=== PATIENT | female | born 1985 | race Caucasian/White ===

== ENCOUNTER 2017-05-22 14:01 | Inpatient (IN) ==
[2017-05-22 16:46] LABS: Basophils # 0.1 10*3/uL (0.0-0.2); Basophils % 0.3 % (0.0-0.8); Eosinophils # 0.1 10*3/uL (0.0-0.87); Eosinophils % 0.4 % (0.00-10.9); Hematocrit 36.2 VOL% (35.7-47.0); Hemoglobin 12.2 GM/DL (12.0-16.0); Immature Granulocytes % 0.8 %; Lymphocytes # 3.2 10*3/uL (1.4-4.0); Lymphocytes % 12.3 % (21.3-54.2); Mean Corpuscular HGB Conc 33.7 GM/DL (32-36); Mean Corpuscular Hemoglobin 30 PG (27-34); Mean Corpuscular Volume 88.3 FL (87-102); Mean Platelet Volume 8.8 FL (9.6-12.0); Monocytes % 7.5 % (1.7-12.7); Neutrophils # 20.7 10*3/uL (1.4-7.4); Neutrophils % 78.7 % (38.7-73.9); Platelet Count 435 T/CUMM (130-400); Red Cell Distribution Width 13.9 % (9.3-17.3); White Blood Count 26.3 T/CUMM (4-12)
[2017-05-22] MEDS ORDERED: CLINDAMYCIN INJ 600 MG in PREMIX 1 EACH IV STA (17:05)
[2017-05-22 17:10] LABS: Albumin 3.8 G/DL (3.4-5.0); Bilirubin,Total 0.4 MG/DL (0.2-1.0); Calcium 8.9 MG/DL (8.5-10.1); Potassium 3.8 MMOL/L (3.5-5.1); Total Protein 7.4 G/DL (6.4-8.3)
[2017-05-22] MEDS ORDERED: ACETAMINOPHEN 325 MG TABLET PO PRN (17:14)
[2017-05-22] MEDS ORDERED: CLINDAMYCIN INJ 50 ML IV ONE (17:26)
[2017-05-22] MEDS ORDERED: KETOROLAC 30 MG/1 ML VIAL ONE (17:28)
[2017-05-22] MEDS ORDERED: KETOROLAC 30 MG/1 ML VIAL IV STA (17:28)
[2017-05-22] MEDS ORDERED: DOCUSATE SODIUM 100 MG CAPSULE PO PRN (17:45)
[2017-05-22] MEDS ORDERED: ONDANSETRON 4 MG/2 ML VIAL IV STA (17:54)
[2017-05-22] MEDS ORDERED: DIPH/TET/ACEL PERT BOOSTER VACCINE 0.5 ML VIAL IM ONE ×2 (17:54→18:00)
[2017-05-22] MEDS ORDERED: ONDANSETRON 4 MG/2 ML VIAL ONE (17:59)
[2017-05-22 18:04] LABS: Eosinophils 1 % (0-10); Lymphocytes 12 % (20-55); Segmented Neutrophils 84 % (50-85)
[2017-05-22 18:05] LABS: Platelet Estimate Adequate; Total Cells Counted 100
[2017-05-22 18:21] LABS: Lactic Acid 0.5 MMOL/L (0.4-2.0)
[2017-05-22] MEDS: SODIUM CHLORIDE 0.9% 1,000 ML IV SCH (19:22)
[2017-05-22] MEDS ORDERED: MORPHINE 4 MG/1 ML VIAL IV ONE (19:58)
[2017-05-22] MEDS: SODIUM CHLORIDE 0.9% 2,400 ML IV ONE ×2 (20:50→23:07)
[2017-05-22] MEDS: ONDANSETRON 4 MG/2 ML VIAL IV PRN (20:51)
[2017-05-22] MEDS: ENOXAPARIN 40 MG/0.4 ML SYRINGE SUBCUT SCH (20:51)
[2017-05-22] MEDS: PIPERACILLIN/TAZOBACTAM 3,375 MG in SODIUM CHLORIDE 0.9% 100 ML IV SCH (20:52)
[2017-05-22] MEDS ORDERED: DIVALPROEX 500 MG TABLET PO SCH (21:00)
[2017-05-22] MEDS: clonazePAM 0.5 MG TABLET PO SCH (22:57)
[2017-05-22] MEDS: KETOROLAC 30 MG/1 ML VIAL IV PRN (23:03)
[2017-05-23] MEDS: ONDANSETRON 4 MG/2 ML VIAL IV PRN ×4 (01:52→23:38)
[2017-05-23] MEDS: VANCOMYCIN INJ 1,250 MG in SODIUM CHLORIDE 0.9% 250 ML IV SCH ×3 (01:52→23:38)
[2017-05-23] MEDS: PIPERACILLIN/TAZOBACTAM 3,375 MG in SODIUM CHLORIDE 0.9% 100 ML IV SCH ×3 (01:53→18:16)
[2017-05-23] MEDS: SODIUM CHLORIDE 0.9% 1,000 ML IV SCH ×3 (02:32→18:17)
[2017-05-23] MEDS ORDERED: PROMETHAZINE 25 MG/1 ML VIAL IM ONE (04:35)
[2017-05-23 06:19] LABS: Basophils % 0.1 % (0.0-0.8); Eosinophils # 0.1 10*3/uL (0.0-0.87); Eosinophils % 0.2 % (0.00-10.9); Hematocrit 31.1 VOL% (35.7-47.0); Hemoglobin 10.4 GM/DL (12.0-16.0); Immature Granulocytes % 0.7 %; Immature Granulocytes Absolute 0.15 #; Lymphocytes # 2.7 10*3/uL (1.4-4.0); Lymphocytes % 12.7 % (21.3-54.2); Mean Corpuscular HGB Conc 33.4 GM/DL (32-36); Mean Corpuscular Hemoglobin 29 PG (27-34); Mean Corpuscular Volume 87.4 FL (87-102); Mean Platelet Volume 9.4 FL (9.6-12.0); Monocytes # 1.6 10*3/uL (0.11-0.8); Monocytes % 7.4 % (1.7-12.7); Neutrophils # 16.7 10*3/uL (1.4-7.4); Neutrophils % 78.9 % (38.7-73.9); Platelet Count 406 T/CUMM (130-400); Red Blood Count 3.56 MC/CUMM (3.8-5.5); Red Cell Distribution Width 13.5 % (9.3-17.3); White Blood Count 21.2 T/CUMM (4-12)
[2017-05-23 06:45] LABS: Giant Platelets Few; Hypochromasia 1+; Lymphocytes 15 % (20-55); Ovalocytes Slight; Platelet Estimate Adequate; Segmented Neutrophils 81 % (50-85); Total Cells Counted 100
[2017-05-23 06:59] LABS: Albumin 3.3 G/DL (3.4-5.0); Calcium 7.9 MG/DL (8.5-10.1); Osmolality,Calculated 272.7 MOS/KG (273-304); Potassium 3.5 MMOL/L (3.5-5.1); Total Protein 6.6 G/DL (6.4-8.3)
[2017-05-23] MEDS: clonazePAM 0.5 MG TABLET PO SCH ×3 (08:22→20:51)
[2017-05-23] MEDS: KETOROLAC 30 MG/1 ML VIAL IV PRN (09:32)
[2017-05-23] MEDS: VALPROIC ACID 250 MG/5 ML UDCUP PO SCH ×2 (10:37→20:53)
[2017-05-23] MEDS ORDERED: ONDANSETRON 4 MG/2 ML VIAL IV PRN (12:41)
[2017-05-23] MEDS ORDERED: LIDOCAINE 2% 20 ML VIAL MISC INJ ONE (13:10)
[2017-05-23] MEDS ORDERED: BENZOCAINE 20% SPRAY 57 GM CAN TOP ONE (13:11)
[2017-05-23] MEDS ORDERED: PROMETHAZINE INJ 25 MG in SODIUM CHLORIDE 0.9% 50 ML IV ONE (13:21)
[2017-05-23] MEDS: ENOXAPARIN 40 MG/0.4 ML SYRINGE SUBCUT SCH (18:17)
[2017-05-23] MEDS: ALUMINUM/MAGNES/SIMETH MAX STR 30 ML UDCUP PO PRN (20:53)
[2017-05-23] MEDS ORDERED: ASENAPINE MALEATE 10 MG SL SCH (21:00)
[2017-05-24] MEDS: PIPERACILLIN/TAZOBACTAM 3,375 MG in SODIUM CHLORIDE 0.9% 100 ML IV SCH ×3 (01:40→18:08)
[2017-05-24] MEDS: SODIUM CHLORIDE 0.9% 1,000 ML IV SCH ×3 (06:01→20:05)
[2017-05-24] MEDS: ONDANSETRON 4 MG/2 ML VIAL IV PRN (08:16)
[2017-05-24] MEDS: KETOROLAC 30 MG/1 ML VIAL IV PRN ×2 (08:16→20:01)
[2017-05-24] MEDS: ALUMINUM/MAGNES/SIMETH MAX STR 30 ML UDCUP PO PRN ×2 (08:18→15:22)
[2017-05-24] MEDS: clonazePAM 0.5 MG TABLET PO SCH ×3 (08:18→20:02)
[2017-05-24] MEDS: VALPROIC ACID 250 MG/5 ML UDCUP PO SCH ×2 (08:18→20:04)
[2017-05-24] MEDS ORDERED: ASENAPINE MALEATE 5 MG SL SCH (09:00)
[2017-05-24] MEDS: VANCOMYCIN INJ 1,250 MG in SODIUM CHLORIDE 0.9% 250 ML IV SCH ×2 (13:45→23:32)
[2017-05-24] MEDS: ENOXAPARIN 40 MG/0.4 ML SYRINGE SUBCUT SCH (18:08)
[2017-05-25] MEDS: PIPERACILLIN/TAZOBACTAM 3,375 MG in SODIUM CHLORIDE 0.9% 100 ML IV SCH ×2 (01:13→09:13)
[2017-05-25] MEDS: SODIUM CHLORIDE 0.9% 1,000 ML IV SCH ×2 (01:13→15:49)
[2017-05-25 04:31] LABS: Basophils # 0.1 10*3/uL (0.0-0.2); Basophils % 0.3 % (0.0-0.8); Eosinophils # 0.1 10*3/uL (0.0-0.87); Eosinophils % 0.6 % (0.00-10.9); Hemoglobin 9.8 GM/DL (12.0-16.0); Immature Granulocytes % 0.7 %; Immature Granulocytes Absolute 0.13 #; Lymphocytes # 3.2 10*3/uL (1.4-4.0); Lymphocytes % 16.5 % (21.3-54.2); Mean Corpuscular HGB Conc 32.7 GM/DL (32-36); Mean Corpuscular Hemoglobin 29 PG (27-34); Monocytes # 1.6 10*3/uL (0.11-0.8); Monocytes % 8.1 % (1.7-12.7); Neutrophils # 14.2 10*3/uL (1.4-7.4); Neutrophils % 73.8 % (38.7-73.9); Platelet Count 388 T/CUMM (130-400); Red Blood Count 3.41 MC/CUMM (3.8-5.5); Red Cell Distribution Width 13.6 % (9.3-17.3); White Blood Count 19.3 T/CUMM (4-12)
[2017-05-25 04:59] LABS: Calcium 7.7 MG/DL (8.5-10.1); Osmolality,Calculated 278.4 MOS/KG (273-304); Potassium 4.1 MMOL/L (3.5-5.1)
[2017-05-25] MEDS: clonazePAM 0.5 MG TABLET PO SCH (09:11)
[2017-05-25] MEDS: VALPROIC ACID 250 MG/5 ML UDCUP PO SCH (09:12)
[2017-05-25] MEDS: KETOROLAC 30 MG/1 ML VIAL IV PRN (09:21)
[2017-05-25 11:36] VITALS: BP 140/94
[2017-05-25] MEDS: ONDANSETRON 4 MG/2 ML VIAL IV PRN (12:03)
[2017-05-25] MEDS: VANCOMYCIN INJ 1,250 MG in SODIUM CHLORIDE 0.9% 250 ML IV SCH (14:11)
== END 2017-05-25 15:51 | disposition home or self-care (01) | DRG 603 ==
LOC: N.ED 14:01 → N.EDINP 17:05 → N.3E 19:20

== ENCOUNTER 2018-01-27 13:10 | Inpatient (IN) ==
[2018-01-27 13:52] LABS: Basophils % 0.4 % (0.0-0.8); Eosinophils % 0.3 % (0.00-10.9); Hematocrit 45.3 VOL% (35.7-47.0); Hemoglobin 14.4 GM/DL (12.0-16.0); Immature Granulocytes % 0.3 %; Immature Granulocytes Absolute 0.02 #; Lymphocytes # 0.9 10*3/uL (1.4-4.0); Lymphocytes % 10.8 % (21.3-54.2); Mean Corpuscular HGB Conc 31.8 GM/DL (32-36); Mean Corpuscular Hemoglobin 28 PG (27-34); Mean Corpuscular Volume 86.6 FL (87-102); Mean Platelet Volume 8.4 FL (9.6-12.0); Monocytes # 0.1 10*3/uL (0.11-0.8); Monocytes % 1.5 % (1.7-12.7); Neutrophils # 6.9 10*3/uL (1.4-7.4); Neutrophils % 86.7 % (38.7-73.9); Platelet Count 843 T/CUMM (130-400); Red Blood Count 5.23 MC/CUMM (3.8-5.5); Red Cell Distribution Width 13.6 % (9.3-17.3)
[2018-01-27 14:12] LABS: Apearance,Urine Slightly Hazy (Clear); Bacteria,Urine Occasional /HPF (Few); Bilirubin,Urine Negative (Negative); Blood, Urine Negative (Negative); Glucose,Urine (UA) Negative (Negative); Hyaline Casts,Urine 3 /LPF (0-3); Ketones,Urine 5 mg/dL (Negative); Mucus,Urine Few /LPF (Occasional); Nitrite,Urine Negative (Negative); Protein,Urine Negative; RBC,Urine 1 /HPF (0-4); Squamous Epithelial Cell,Urine Occasional /HPF (0-10); Urine Color Amber (Yellow); Urine Specific Gravity 1.028 (1.001-1.035); Urine Urobilinogen < 2.0 EU/DL (0.2-1.0); WBC,Urine 3 /HPF (0-6)
[2018-01-27 14:13] LABS: Barbiturates Screen,Urine Negative (Negative); Benzodiazepines Screen,Urine Positive (Negative); Cannabinoid Screen,Urine Positive (Negative); Opiate Screen,Urine Negative (Negative); Phencyclidine Screen,Urine Negative (Negative)
[2018-01-27 14:15] LABS: Albumin 4.3 G/DL (3.4-5.0); Calcium 9.5 MG/DL (8.5-10.1); Osmolality,Calculated 267.4 MOS/KG (273-304); Potassium 3.5 MMOL/L (3.5-5.1)
[2018-01-27] MEDS ORDERED: DEXAMETHASONE 4 MG/1 ML VIAL ONE (14:23)
[2018-01-27] MEDS ORDERED: PIPERACILLIN/TAZOBACTAM 3,375 MG in SODIUM CHLORIDE 0.9% 100 ML IV STA (14:39)
[2018-01-27] MEDS ORDERED: ONDANSETRON 4 MG/2 ML VIAL IV STA (14:39)
[2018-01-27] MEDS ORDERED: SODIUM CHLORIDE 0.9% 1,000 ML IV STA (14:39)
[2018-01-27] MEDS ORDERED: MORPHINE 4 MG/1 ML VIAL IV STA ×2 (14:39→15:16)
[2018-01-27] MEDS ORDERED: ONDANSETRON 4 MG/2 ML VIAL ONE ×3 (14:45→19:16)
[2018-01-27] MEDS ORDERED: MORPHINE 4 MG/1 ML VIAL ONE ×2 (14:45→15:18)
[2018-01-27] MEDS ORDERED: KETOROLAC 15 MG/1 ML VIAL IV PRN (18:41)
[2018-01-27] MEDS ORDERED: NALOXONE 0.4 MG/ML VIAL IV PRN (18:43)
[2018-01-27 18:54] LABS: Apearance,Urine Slightly Hazy (Clear); Bilirubin,Urine Negative (Negative); Blood, Urine Small mg/dL (Negative); Glucose,Urine (UA) Negative (Negative); Ketones,Urine Negative (Negative); Mucus,Urine Occasional /LPF (Occasional); Nitrite,Urine Negative (Negative); Protein,Urine 30 MG/DL; RBC,Urine 1 /HPF (0-4); Squamous Epithelial Cell,Urine Occasional /HPF (0-10); Urine Color Yellow (Yellow); Urine Specific Gravity > 1.060 (1.001-1.035); Urine Urobilinogen < 2.0 EU/DL (0.2-1.0); WBC,Urine 4 /HPF (0-6)
[2018-01-27] MEDS ORDERED: ONDANSETRON 4 MG/2 ML VIAL IV PRN (18:58)
[2018-01-27] MEDS: HYDROmorphone 2 MG/1 ML VIAL IV PRN ×2 (19:00→19:15)
[2018-01-27] MEDS ORDERED: HYDROmorphone 2 MG/1 ML VIAL ONE (19:02)
[2018-01-27] MEDS ORDERED: ePHEDrine 50 MG/ML AMP ONE (19:16)
[2018-01-27] MEDS ORDERED: MIDAZOLAM 2 MG/2 ML VIAL ONE (19:16)
[2018-01-27] MEDS ORDERED: PROPOFOL 200 MG/20 ML VIAL IV ONE (19:16)
[2018-01-27] MEDS ORDERED: SUCCINYLCHOLINE 200 MG/10 ML VIAL ONE (19:16)
[2018-01-27] MEDS ORDERED: SODIUM CHLORIDE 0.9% 2,000 ML IV ONE (19:16)
[2018-01-27] MEDS ORDERED: PHENYLEPHRINE 1 MG/10 ML SYRINGE IV ONE (19:16)
[2018-01-27] MEDS ORDERED: fentaNYL 100 MCG/2 ML VIAL ONE (19:16)
[2018-01-27] MEDS ORDERED: LACTATED RINGERS 2,000 ML IV ONE (19:16)
[2018-01-27] MEDS ORDERED: ROCURONIUM 100 MG/10 ML VIAL IV ONE (19:16)
[2018-01-27] MEDS ORDERED: SEVOFLURANE 1 UNIT/15 MINUTE INH ONE (19:16)
[2018-01-27] MEDS ORDERED: GLYCOPYRROLATE 0.4 MG/2 ML VIAL ONE (19:16)
[2018-01-27] MEDS ORDERED: NEOSTIGMINE 10 MG/10 ML VIAL ONE (19:17)
[2018-01-27] MEDS: cefOXitin 2,000 MG in SYRINGE 1 EACH IV SCH (19:22)
[2018-01-27] MEDS: MORPHINE PCA 150 MG/30 ML SYRINGE IV SCH (20:33)
[2018-01-27] MEDS: LACTATED RINGERS 1,000 ML IV SCH (22:05)
[2018-01-28] MEDS: cefOXitin 2,000 MG in SYRINGE 1 EACH IV SCH ×3 (04:15→21:18)
[2018-01-28] MEDS: LACTATED RINGERS 1,000 ML IV SCH ×3 (04:50→21:16)
[2018-01-28 04:52] LABS: Basophils # 0.1 10*3/uL (0.0-0.2); Basophils % 0.7 % (0.0-0.8); Hematocrit 35.9 VOL% (35.7-47.0); Hemoglobin 11.5 GM/DL (12.0-16.0); Immature Granulocytes % 1.2 %; Immature Granulocytes Absolute 0.15 #; Lymphocytes # 0.8 10*3/uL (1.4-4.0); Lymphocytes % 6.2 % (21.3-54.2); Mean Corpuscular Hemoglobin 28 PG (27-34); Mean Corpuscular Volume 86.1 FL (87-102); Mean Platelet Volume 8.8 FL (9.6-12.0); Monocytes # 0.8 10*3/uL (0.11-0.8); Monocytes % 6.7 % (1.7-12.7); Neutrophils # 10.4 10*3/uL (1.4-7.4); Neutrophils % 85.2 % (38.7-73.9); Platelet Count 596 T/CUMM (130-400); Red Blood Count 4.17 MC/CUMM (3.8-5.5); Red Cell Distribution Width 13.6 % (9.3-17.3); White Blood Count 12.2 T/CUMM (4-12)
[2018-01-28 05:05] LABS: Calcium 7.2 MG/DL (8.5-10.1); Osmolality,Calculated 277.7 MOS/KG (273-304)
[2018-01-28] MEDS ORDERED: PANTOPRAZOLE 40 MG TABLET PO SCH (09:00)
[2018-01-28] MEDS: LORazepam 2 MG/1 ML VIAL IV PRN (09:05)
[2018-01-28] MEDS: PANTOPRAZOLE 40 MG VIAL IV SCH ×2 (09:10→21:19)
[2018-01-28] MEDS ORDERED: HALOPERIDOL 5 MG/ML AMP IM ONE (09:47)
[2018-01-28] MEDS ORDERED: SODIUM CHLORIDE 0.9% 1,000 ML IV ONE (09:53)
[2018-01-28] MEDS: LORazepam 2 MG/1 ML VIAL IV SCH ×2 (14:41→21:16)
[2018-01-29] MEDS: cefOXitin 2,000 MG in SYRINGE 1 EACH IV SCH ×3 (02:22→20:06)
[2018-01-29] MEDS: LORazepam 2 MG/1 ML VIAL IV SCH ×4 (02:23→20:05)
[2018-01-29 05:53] LABS: Basophils # 0.1 10*3/uL (0.0-0.2); Basophils % 0.4 % (0.0-0.8); Eosinophils # 0.1 10*3/uL (0.0-0.87); Eosinophils % 0.5 % (0.00-10.9); Hematocrit 28.1 VOL% (35.7-47.0); Immature Granulocytes Absolute 0.49 #; Lymphocytes # 1.8 10*3/uL (1.4-4.0); Lymphocytes % 7.4 % (21.3-54.2); Mean Corpuscular Hemoglobin 28 PG (27-34); Mean Corpuscular Volume 86.2 FL (87-102); Mean Platelet Volume 9.2 FL (9.6-12.0); Monocytes # 1.5 10*3/uL (0.11-0.8); Monocytes % 6.2 % (1.7-12.7); Neutrophils # 20.3 10*3/uL (1.4-7.4); Neutrophils % 83.5 % (38.7-73.9); Platelet Count 514 T/CUMM (130-400); Red Cell Distribution Width 13.9 % (9.3-17.3)
[2018-01-29 05:57] LABS: Calcium 7.8 MG/DL (8.5-10.1); Osmolality,Calculated 271.7 MOS/KG (273-304); Potassium 3.4 MMOL/L (3.5-5.1)
[2018-01-29 06:09] LABS: Red Blood Count 3.26 MC/CUMM (3.8-5.5); White Blood Count 24.3 T/CUMM (4-12)
[2018-01-29] MEDS: LACTATED RINGERS 1,000 ML IV SCH ×3 (06:21→21:12)
[2018-01-29 06:25] LABS: Band Neutrophils 1 % (0-10); Lymphocytes 4 % (20-55); Platelet Estimate Normal; Polychromasia Few; Segmented Neutrophils 92 % (50-85); Total Cells Counted 100
[2018-01-29] MEDS: MORPHINE PCA 150 MG/30 ML SYRINGE IV SCH ×2 (07:09→21:57)
[2018-01-29] MEDS ORDERED: POTASSIUM CHLORIDE 20 MEQ TABLET PO PRN (07:24)
[2018-01-29] MEDS ORDERED: PHENOL 1.4% THROAT SPRAY 177 ML BOTTLE PO PRN (09:05)
[2018-01-29] MEDS: LORazepam 2 MG/1 ML VIAL IV PRN (09:56)
[2018-01-29] MEDS: PANTOPRAZOLE 40 MG VIAL IV SCH ×2 (09:56→20:05)
[2018-01-29] MEDS: DOCOSANOL 10% CREAM 2 GM TUBE TOP SCH ×4 (11:00→21:57)
[2018-01-29] MEDS: MYLANTA/LIDO VISC/DIPH 300 ML BOTTLE SWISH/SPIT SCH ×4 (13:59→20:06)
[2018-01-29] MEDS: POTASSIUM CHLORIDE RIDER 10 MEQ in PREMIX 1 EACH IV PRN ×3 (15:52→18:11)
[2018-01-29] MEDS: ONDANSETRON 4 MG/2 ML VIAL IV PRN (20:17)
[2018-01-30] MEDS: ONDANSETRON 4 MG/2 ML VIAL IV PRN ×2 (01:49→20:47)
[2018-01-30] MEDS: LORazepam 2 MG/1 ML VIAL IV SCH ×5 (01:49→22:37)
[2018-01-30] MEDS: cefOXitin 2,000 MG in SYRINGE 1 EACH IV SCH ×3 (02:03→18:44)
[2018-01-30] MEDS: LACTATED RINGERS 1,000 ML IV SCH ×2 (05:35→07:14)
[2018-01-30] MEDS: DOCOSANOL 10% CREAM 2 GM TUBE TOP SCH ×5 (05:36→22:37)
[2018-01-30 05:59] LABS: Basophils # 0.1 10*3/uL (0.0-0.2); Basophils % 0.2 % (0.0-0.8); Eosinophils # 0.2 10*3/uL (0.0-0.87); Eosinophils % 0.8 % (0.00-10.9); Hematocrit 27.9 VOL% (35.7-47.0); Hemoglobin 8.7 GM/DL (12.0-16.0); Immature Granulocytes % 1.3 %; Immature Granulocytes Absolute 0.28 #; Lymphocytes # 1.7 10*3/uL (1.4-4.0); Lymphocytes % 8.1 % (21.3-54.2); Mean Corpuscular HGB Conc 31.2 GM/DL (32-36); Mean Corpuscular Hemoglobin 27 PG (27-34); Mean Corpuscular Volume 86.4 FL (87-102); Mean Platelet Volume 9.1 FL (9.6-12.0); Monocytes % 4.7 % (1.7-12.7); Neutrophils # 17.8 10*3/uL (1.4-7.4); Neutrophils % 84.9 % (38.7-73.9); Platelet Count 513 T/CUMM (130-400); Red Blood Count 3.23 MC/CUMM (3.8-5.5); Red Cell Distribution Width 13.8 % (9.3-17.3)
[2018-01-30 06:32] LABS: Albumin 1.9 G/DL (3.4-5.0); Bilirubin,Total 0.5 MG/DL (0.2-1.0); Calcium 7.9 MG/DL (8.5-10.1); Osmolality,Calculated 272.5 MOS/KG (273-304); Potassium 3.3 MMOL/L (3.5-5.1); Total Protein 5.6 G/DL (6.4-8.3)
[2018-01-30 06:42] LABS: Band Neutrophils 1 % (0-10); Eosinophils 2 % (0-10); Lymphocytes 5 % (20-55); Segmented Neutrophils 87 % (50-85)
[2018-01-30 06:43] LABS: Platelet Estimate Adequate; Total Cells Counted 100
[2018-01-30] MEDS: MYLANTA/LIDO VISC/DIPH 300 ML BOTTLE SWISH/SPIT SCH ×4 (08:45→20:43)
[2018-01-30] MEDS: PANTOPRAZOLE 40 MG VIAL IV SCH ×2 (13:43→20:43)
[2018-01-30] MEDS: POTASSIUM CHLORIDE RIDER 10 MEQ in PREMIX 1 EACH IV PRN ×4 (13:48→16:47)
[2018-01-30] MEDS: DEXT 5% LACT RING KCL 20 MEQ 20 MEQ/1,000 ML BAG IV SCH ×2 (14:03→21:21)
[2018-01-30] MEDS: LORazepam 2 MG/1 ML VIAL IV PRN ×2 (14:59→18:02)
[2018-01-30] MEDS: MORPHINE PCA 150 MG/30 ML SYRINGE IV SCH (20:34)
[2018-01-31] MEDS: LORazepam 2 MG/1 ML VIAL IV SCH ×4 (04:02→20:59)
[2018-01-31] MEDS: cefOXitin 2,000 MG in SYRINGE 1 EACH IV SCH ×3 (04:03→20:50)
[2018-01-31] MEDS: DEXT 5% LACT RING KCL 20 MEQ 20 MEQ/1,000 ML BAG IV SCH ×4 (05:21→21:04)
[2018-01-31] MEDS: DOCOSANOL 10% CREAM 2 GM TUBE TOP SCH ×5 (05:21→21:06)
[2018-01-31 06:05] LABS: Basophils % 0.3 % (0.0-0.8); Eosinophils # 0.2 10*3/uL (0.0-0.87); Eosinophils % 1.6 % (0.00-10.9); Hematocrit 29.9 VOL% (35.7-47.0); Hemoglobin 9.5 GM/DL (12.0-16.0); Immature Granulocytes % 0.8 %; Lymphocytes # 1.4 10*3/uL (1.4-4.0); Lymphocytes % 11.1 % (21.3-54.2); Mean Corpuscular HGB Conc 31.8 GM/DL (32-36); Mean Corpuscular Hemoglobin 27 PG (27-34); Mean Corpuscular Volume 85.4 FL (87-102); Mean Platelet Volume 9.1 FL (9.6-12.0); Monocytes # 1.1 10*3/uL (0.11-0.8); Monocytes % 8.7 % (1.7-12.7); Neutrophils # 9.4 10*3/uL (1.4-7.4); Neutrophils % 77.5 % (38.7-73.9); Platelet Count 519 T/CUMM (130-400); Red Cell Distribution Width 13.7 % (9.3-17.3); White Blood Count 12.2 T/CUMM (4-12)
[2018-01-31 06:22] LABS: Calcium 7.6 MG/DL (8.5-10.1); Osmolality,Calculated 270.8 MOS/KG (273-304); Potassium 3.6 MMOL/L (3.5-5.1)
[2018-01-31 06:59] LABS: Hypochromasia 2+; Lymphocytes 13 % (20-55); Platelet Estimate Increased; Segmented Neutrophils 82 % (50-85); Total Cells Counted 100
[2018-01-31 07:00] LABS: Ovalocytes Few
[2018-01-31] MEDS: ONDANSETRON 4 MG/2 ML VIAL IV PRN ×2 (08:34→21:08)
[2018-01-31] MEDS: MYLANTA/LIDO VISC/DIPH 300 ML BOTTLE SWISH/SPIT SCH ×4 (08:34→20:50)
[2018-01-31] MEDS: PANTOPRAZOLE 40 MG VIAL IV SCH ×2 (08:37→20:57)
[2018-01-31] MEDS: ENOXAPARIN 40 MG/0.4 ML SYRINGE SUBCUT SCH (12:59)
[2018-02-01] MEDS: cefOXitin 2,000 MG in SYRINGE 1 EACH IV SCH ×3 (01:59→22:00)
[2018-02-01] MEDS: LORazepam 2 MG/1 ML VIAL IV SCH ×2 (02:05→17:05)
[2018-02-01] MEDS: DEXT 5% LACT RING KCL 20 MEQ 20 MEQ/1,000 ML BAG IV SCH ×3 (04:54→21:57)
[2018-02-01 05:07] LABS: Basophils # 0.1 10*3/uL (0.0-0.2); Basophils % 0.4 % (0.0-0.8); Eosinophils # 0.6 10*3/uL (0.0-0.87); Eosinophils % 4.3 % (0.00-10.9); Hematocrit 30.6 VOL% (35.7-47.0); Hemoglobin 9.7 GM/DL (12.0-16.0); Immature Granulocytes % 1.5 %; Lymphocytes # 1.5 10*3/uL (1.4-4.0); Lymphocytes % 11.5 % (21.3-54.2); Mean Corpuscular HGB Conc 31.7 GM/DL (32-36); Mean Corpuscular Hemoglobin 27 PG (27-34); Mean Corpuscular Volume 85.5 FL (87-102); Mean Platelet Volume 8.9 FL (9.6-12.0); Monocytes # 1.6 10*3/uL (0.11-0.8); Monocytes % 12.3 % (1.7-12.7); Neutrophils # 9.2 10*3/uL (1.4-7.4); Platelet Count 543 T/CUMM (130-400); Red Blood Count 3.58 MC/CUMM (3.8-5.5); Red Cell Distribution Width 13.8 % (9.3-17.3); White Blood Count 13.2 T/CUMM (4-12)
[2018-02-01 05:38] LABS: Calcium 8.2 MG/DL (8.5-10.1); Osmolality,Calculated 270.7 MOS/KG (273-304); Potassium 3.8 MMOL/L (3.5-5.1)
[2018-02-01] MEDS: DOCOSANOL 10% CREAM 2 GM TUBE TOP SCH ×5 (06:00→22:00)
[2018-02-01] MEDS ORDERED: MAGNESIUM SULF RIDER 2 GM in PREMIX 1 EACH IV ONE (07:38)
[2018-02-01] MEDS ORDERED: MAGNESIUM SULF RIDER 4 GM in PREMIX 1 EACH IV PRN (08:09)
[2018-02-01] MEDS ORDERED: MAGNESIUM SULF RIDER 2 GM in PREMIX 1 EACH IV PRN (08:09)
[2018-02-01] MEDS: PANTOPRAZOLE 40 MG VIAL IV SCH ×2 (09:49→21:58)
[2018-02-01] MEDS: MYLANTA/LIDO VISC/DIPH 300 ML BOTTLE SWISH/SPIT SCH ×4 (10:00→21:52)
[2018-02-01] MEDS: ONDANSETRON 4 MG/2 ML VIAL IV PRN (14:29)
[2018-02-01] MEDS: ENOXAPARIN 40 MG/0.4 ML SYRINGE SUBCUT SCH (14:30)
[2018-02-01] MEDS ORDERED: HYDROCORTISONE 2.5% CREAM 30 GM TUBE TOP PRN (15:18)
[2018-02-01] MEDS ORDERED: diphenhydrAMINE 2% CREAM 28 GM TUBE TOP PRN (15:18)
[2018-02-02] MEDS: LORazepam 2 MG/1 ML VIAL IV SCH (01:27)
[2018-02-02] MEDS: cefOXitin 2,000 MG in SYRINGE 1 EACH IV SCH ×2 (03:59→10:15)
[2018-02-02] MEDS: DEXT 5% LACT RING KCL 20 MEQ 20 MEQ/1,000 ML BAG IV SCH ×2 (05:18→17:56)
[2018-02-02] MEDS: DOCOSANOL 10% CREAM 2 GM TUBE TOP SCH ×4 (05:19→19:05)
[2018-02-02] MEDS: MORPHINE PCA 150 MG/30 ML SYRINGE IV SCH ×2 (06:18→06:47)
[2018-02-02 06:49] LABS: Basophils # 0.1 10*3/uL (0.0-0.2); Basophils % 0.5 % (0.0-0.8); Eosinophils # 0.6 10*3/uL (0.0-0.87); Eosinophils % 4.3 % (0.00-10.9); Hematocrit 32.6 VOL% (35.7-47.0); Hemoglobin 10.2 GM/DL (12.0-16.0); Immature Granulocytes % 4.1 %; Immature Granulocytes Absolute 0.53 #; Lymphocytes # 2.2 10*3/uL (1.4-4.0); Lymphocytes % 16.7 % (21.3-54.2); Mean Corpuscular HGB Conc 31.3 GM/DL (32-36); Mean Corpuscular Hemoglobin 27 PG (27-34); Mean Platelet Volume 9.1 FL (9.6-12.0); Monocytes # 1.7 10*3/uL (0.11-0.8); Monocytes % 13.1 % (1.7-12.7); Neutrophils # 7.9 10*3/uL (1.4-7.4); Neutrophils % 61.3 % (38.7-73.9); Platelet Count 571 T/CUMM (130-400); Red Blood Count 3.79 MC/CUMM (3.8-5.5); White Blood Count 12.9 T/CUMM (4-12)
[2018-02-02 06:58] LABS: Calcium 8.1 MG/DL (8.5-10.1); Osmolality,Calculated 266.1 MOS/KG (273-304)
[2018-02-02 07:26] LABS: Band Neutrophils 2 % (0-10); Eosinophils 4 % (0-10); Lymphocytes 15 % (20-55); Metamyelocytes 1 %; Platelet Estimate Increased; Segmented Neutrophils 63 % (50-85); Total Cells Counted 100
[2018-02-02 07:27] LABS: Polychromasia Few
[2018-02-02] MEDS: MYLANTA/LIDO VISC/DIPH 300 ML BOTTLE SWISH/SPIT SCH ×4 (07:30→21:45)
[2018-02-02] MEDS: PANTOPRAZOLE 40 MG VIAL IV SCH ×2 (09:30→21:03)
[2018-02-02] MEDS: ENOXAPARIN 40 MG/0.4 ML SYRINGE SUBCUT SCH (10:17)
[2018-02-02] MEDS: AMOXICILLIN 500 MG CAPSULE PO SCH ×2 (14:11→21:03)
[2018-02-02] MEDS: CLARITHROMYCIN 500 MG TABLET PO SCH ×2 (14:11→21:03)
[2018-02-02] MEDS: ACETAMINOPHEN 325 MG TABLET PO PRN (14:11)
[2018-02-02] MEDS: ONDANSETRON 4 MG/2 ML VIAL IV PRN (14:12)
[2018-02-02] MEDS: diphenhydrAMINE CAP 25 MG CAPSULE PO PRN (17:36)
[2018-02-02] MEDS ORDERED: DIVALPROEX 250 MG TABLET PO SCH (21:00)
[2018-02-02] MEDS: DIVALPROEX 250 MG TABLET PO SCH (21:03)
[2018-02-02] MEDS ORDERED: diphenhydrAMINE 50 MG/1 ML VIAL IV ONE (22:09)
[2018-02-03] MEDS: MORPHINE PCA 150 MG/30 ML SYRINGE IV SCH ×3 (01:00→22:43)
[2018-02-03] MEDS: DOCOSANOL 10% CREAM 2 GM TUBE TOP SCH ×6 (01:31→22:53)
[2018-02-03] MEDS: ACETAMINOPHEN 325 MG TABLET PO PRN ×3 (02:11→17:54)
[2018-02-03] MEDS: DEXT 5% LACT RING KCL 20 MEQ 20 MEQ/1,000 ML BAG IV SCH ×2 (03:04→22:44)
[2018-02-03 05:57] LABS: Basophils # 0.1 10*3/uL (0.0-0.2); Basophils % 0.6 % (0.0-0.8); Eosinophils # 0.4 10*3/uL (0.0-0.87); Eosinophils % 2.8 % (0.00-10.9); Hematocrit 33.1 VOL% (35.7-47.0); Hemoglobin 10.2 GM/DL (12.0-16.0); Immature Granulocytes % 4.8 %; Immature Granulocytes Absolute 0.67 #; Lymphocytes # 2.4 10*3/uL (1.4-4.0); Lymphocytes % 16.7 % (21.3-54.2); Mean Corpuscular HGB Conc 30.8 GM/DL (32-36); Mean Corpuscular Hemoglobin 27 PG (27-34); Mean Platelet Volume 9.7 FL (9.6-12.0); Monocytes # 1.6 10*3/uL (0.11-0.8); Neutrophils % 64.1 % (38.7-73.9); Platelet Count 395 T/CUMM (130-400); Red Blood Count 3.85 MC/CUMM (3.8-5.5)
[2018-02-03 06:09] LABS: Calcium 8.1 MG/DL (8.5-10.1); Osmolality,Calculated 265.1 MOS/KG (273-304); Potassium 3.9 MMOL/L (3.5-5.1)
[2018-02-03 06:25] LABS: Atypical Lymphocytes Few; Band Neutrophils 1 % (0-10); Eosinophils 5 % (0-10); Hypochromasia 1+; Lymphocytes 20 % (20-55); Microcytosis 1+; Myelocytes 1 %; Segmented Neutrophils 61 % (50-85); Total Cells Counted 100
[2018-02-03] MEDS: MYLANTA/LIDO VISC/DIPH 300 ML BOTTLE SWISH/SPIT SCH ×4 (07:30→20:39)
[2018-02-03] MEDS: CLARITHROMYCIN 500 MG TABLET PO SCH ×2 (08:45→20:36)
[2018-02-03] MEDS: PANTOPRAZOLE 40 MG VIAL IV SCH ×2 (08:45→20:36)
[2018-02-03] MEDS: DIVALPROEX 250 MG TABLET PO SCH ×2 (08:45→20:36)
[2018-02-03] MEDS: ENOXAPARIN 40 MG/0.4 ML SYRINGE SUBCUT SCH ×2 (08:45→17:12)
[2018-02-03] MEDS: AMOXICILLIN 500 MG CAPSULE PO SCH ×2 (08:45→20:36)
[2018-02-03] MEDS ORDERED: ASENAPINE MALEATE 5 MG SL SCH (09:00)
[2018-02-03] MEDS ORDERED: POLYETHYLENE GLYCOL POWDER 17 GM PACK PO SCH (10:00)
[2018-02-03] MEDS: diphenhydrAMINE CAP 25 MG CAPSULE PO PRN ×2 (12:34→20:54)
[2018-02-03] MEDS: ONDANSETRON 4 MG/2 ML VIAL IV PRN ×2 (12:59→22:48)
[2018-02-03] MEDS ORDERED: LORazepam 2 MG/1 ML VIAL IV ONE (13:02)
[2018-02-03] MEDS ORDERED: ZIPRASIDONE 20 MG/1 ML VIAL IM ONE (13:03)
[2018-02-03] MEDS: POLYETHYLENE GLYCOL POWDER 17 GM PACK PO SCH ×2 (13:30→20:36)
[2018-02-03] MEDS ORDERED: NON-FORMULARY MEDICATION (Asenapine Maleate [Saphris] 10 MG) SL SCH (21:00)
[2018-02-04] MEDS: ACETAMINOPHEN 325 MG TABLET PO PRN ×2 (02:22→19:45)
[2018-02-04] MEDS: DEXT 5% LACT RING KCL 20 MEQ 20 MEQ/1,000 ML BAG IV SCH ×2 (03:42→09:58)
[2018-02-04] MEDS: diphenhydrAMINE CAP 25 MG CAPSULE PO PRN ×3 (04:26→17:27)
[2018-02-04 05:28] LABS: Basophils # 0.1 10*3/uL (0.0-0.2); Basophils % 0.4 % (0.0-0.8); Eosinophils # 0.5 10*3/uL (0.0-0.87); Eosinophils % 3.4 % (0.00-10.9); Hematocrit 28.6 VOL% (35.7-47.0); Hemoglobin 9.2 GM/DL (12.0-16.0); Immature Granulocytes % 3.7 %; Immature Granulocytes Absolute 0.52 #; Lymphocytes # 2.8 10*3/uL (1.4-4.0); Mean Corpuscular HGB Conc 32.2 GM/DL (32-36); Mean Corpuscular Hemoglobin 27 PG (27-34); Mean Corpuscular Volume 83.9 FL (87-102); Mean Platelet Volume 8.8 FL (9.6-12.0); Monocytes # 1.3 10*3/uL (0.11-0.8); Monocytes % 9.2 % (1.7-12.7); Neutrophils # 8.9 10*3/uL (1.4-7.4); Neutrophils % 63.3 % (38.7-73.9); Platelet Count 539 T/CUMM (130-400); Red Blood Count 3.41 MC/CUMM (3.8-5.5); White Blood Count 14.1 T/CUMM (4-12)
[2018-02-04 05:59] LABS: Potassium 3.6 MMOL/L (3.5-5.1)
[2018-02-04 06:07] LABS: Band Neutrophils 1 % (0-10); Eosinophils 1 % (0-10); Hypochromasia Slight; Lymphocytes 20 % (20-55); Metamyelocytes 1 %; Platelet Estimate Normal; Polychromasia Few; Segmented Neutrophils 72 % (50-85); Total Cells Counted 100
[2018-02-04] MEDS: DOCOSANOL 10% CREAM 2 GM TUBE TOP SCH ×5 (06:55→19:46)
[2018-02-04] MEDS: POLYETHYLENE GLYCOL POWDER 17 GM PACK PO SCH ×3 (09:57→22:10)
[2018-02-04] MEDS: DIVALPROEX 250 MG TABLET PO SCH ×3 (09:57→20:30)
[2018-02-04] MEDS: ONDANSETRON 4 MG/2 ML VIAL IV PRN ×2 (09:57→21:31)
[2018-02-04] MEDS: AMOXICILLIN 500 MG CAPSULE PO SCH ×2 (09:57→20:29)
[2018-02-04] MEDS: CLARITHROMYCIN 500 MG TABLET PO SCH ×3 (09:58→22:10)
[2018-02-04] MEDS: PANTOPRAZOLE 40 MG VIAL IV SCH ×3 (09:59→22:10)
[2018-02-04] MEDS: ENOXAPARIN 40 MG/0.4 ML SYRINGE SUBCUT SCH (10:01)
[2018-02-04] MEDS: MYLANTA/LIDO VISC/DIPH 300 ML BOTTLE SWISH/SPIT SCH ×4 (12:09→20:30)
[2018-02-04] MEDS: MORPHINE 4 MG/1 ML VIAL IV PRN ×2 (17:26→21:31)
[2018-02-05] MEDS: MORPHINE 4 MG/1 ML VIAL IV PRN ×6 (00:35→21:46)
[2018-02-05] MEDS: DOCOSANOL 10% CREAM 2 GM TUBE TOP SCH ×5 (00:37→18:00)
[2018-02-05 06:49] LABS: Basophils # 0.1 10*3/uL (0.0-0.2); Basophils % 0.4 % (0.0-0.8); Eosinophils # 0.4 10*3/uL (0.0-0.87); Eosinophils % 2.5 % (0.00-10.9); Hematocrit 31.5 VOL% (35.7-47.0); Hemoglobin 10.1 GM/DL (12.0-16.0); Immature Granulocytes % 2.6 %; Immature Granulocytes Absolute 0.39 #; Lymphocytes # 2.6 10*3/uL (1.4-4.0); Lymphocytes % 17.3 % (21.3-54.2); Mean Corpuscular HGB Conc 32.1 GM/DL (32-36); Mean Corpuscular Hemoglobin 27 PG (27-34); Mean Corpuscular Volume 83.8 FL (87-102); Mean Platelet Volume 8.9 FL (9.6-12.0); Monocytes % 6.8 % (1.7-12.7); Neutrophils # 10.7 10*3/uL (1.4-7.4); Neutrophils % 70.4 % (38.7-73.9); Platelet Count 631 T/CUMM (130-400); Red Blood Count 3.76 MC/CUMM (3.8-5.5); White Blood Count 15.1 T/CUMM (4-12)
[2018-02-05 06:53] LABS: Calcium 8.3 MG/DL (8.5-10.1); Potassium 3.9 MMOL/L (3.5-5.1)
[2018-02-05] MEDS: CLARITHROMYCIN 500 MG TABLET PO SCH ×2 (09:37→21:47)
[2018-02-05] MEDS: DIVALPROEX 250 MG TABLET PO SCH ×2 (09:38→21:47)
[2018-02-05] MEDS: AMOXICILLIN 500 MG CAPSULE PO SCH ×2 (09:38→21:47)
[2018-02-05] MEDS: PANTOPRAZOLE 40 MG VIAL IV SCH (09:39)
[2018-02-05] MEDS: MYLANTA/LIDO VISC/DIPH 300 ML BOTTLE SWISH/SPIT SCH ×4 (09:42→23:41)
[2018-02-05] MEDS: POLYETHYLENE GLYCOL POWDER 17 GM PACK PO SCH ×2 (09:42→21:47)
[2018-02-05] MEDS: ONDANSETRON 4 MG/2 ML VIAL IV PRN ×2 (12:20→21:46)
[2018-02-05] MEDS: ENOXAPARIN 40 MG/0.4 ML SYRINGE SUBCUT SCH (13:30)
[2018-02-05] MEDS: diphenhydrAMINE CAP 25 MG CAPSULE PO PRN (21:47)
[2018-02-05] MEDS: PANTOPRAZOLE 40 MG TABLET PO SCH (21:47)
[2018-02-05] MEDS: DEXT 5% LACT RING KCL 20 MEQ 20 MEQ/1,000 ML BAG IV SCH (23:43)
[2018-02-06] MEDS: DEXT 5% LACT RING KCL 20 MEQ 20 MEQ/1,000 ML BAG IV SCH ×3 (01:55→14:47)
[2018-02-06] MEDS: DOCOSANOL 10% CREAM 2 GM TUBE TOP SCH ×5 (01:55→18:18)
[2018-02-06 06:03] LABS: Calcium 8.4 MG/DL (8.5-10.1); Osmolality,Calculated 267.1 MOS/KG (273-304)
[2018-02-06 06:06] LABS: Basophils # 0.1 10*3/uL (0.0-0.2); Basophils % 0.4 % (0.0-0.8); Eosinophils # 0.2 10*3/uL (0.0-0.87); Eosinophils % 1.5 % (0.00-10.9); Hematocrit 32.2 VOL% (35.7-47.0); Hemoglobin 10.4 GM/DL (12.0-16.0); Immature Granulocytes % 2.6 %; Immature Granulocytes Absolute 0.37 #; Lymphocytes # 2.5 10*3/uL (1.4-4.0); Lymphocytes % 17.7 % (21.3-54.2); Mean Corpuscular HGB Conc 32.3 GM/DL (32-36); Mean Corpuscular Hemoglobin 27 PG (27-34); Mean Corpuscular Volume 83.2 FL (87-102); Mean Platelet Volume 8.7 FL (9.6-12.0); Monocytes % 6.7 % (1.7-12.7); Neutrophils # 10.2 10*3/uL (1.4-7.4); Neutrophils % 71.1 % (38.7-73.9); Platelet Count 726 T/CUMM (130-400); Red Blood Count 3.87 MC/CUMM (3.8-5.5); Red Cell Distribution Width 14.1 % (9.3-17.3); White Blood Count 14.3 T/CUMM (4-12)
[2018-02-06] MEDS: LACTATED RINGERS 1,000 ML IV SCH ×2 (06:21→15:24)
[2018-02-06] MEDS: MYLANTA/LIDO VISC/DIPH 300 ML BOTTLE SWISH/SPIT SCH ×4 (07:35→20:41)
[2018-02-06] MEDS: MORPHINE 4 MG/1 ML VIAL IV PRN ×3 (08:24→20:37)
[2018-02-06] MEDS: AMOXICILLIN 500 MG CAPSULE PO SCH ×2 (10:30→20:37)
[2018-02-06] MEDS: CLARITHROMYCIN 500 MG TABLET PO SCH ×2 (10:31→20:36)
[2018-02-06] MEDS: DIVALPROEX 250 MG TABLET PO SCH ×2 (10:31→20:36)
[2018-02-06] MEDS: POLYETHYLENE GLYCOL POWDER 17 GM PACK PO SCH ×2 (10:31→20:37)
[2018-02-06] MEDS: PANTOPRAZOLE 40 MG TABLET PO SCH ×2 (10:31→20:37)
[2018-02-06] MEDS: ENOXAPARIN 40 MG/0.4 ML SYRINGE SUBCUT SCH (11:54)
[2018-02-06] MEDS ORDERED: ONDANSETRON 4 MG/2 ML VIAL ONE ×2 (13:01→13:06)
[2018-02-06] MEDS ORDERED: SEVOFLURANE 1 UNIT/15 MINUTE INH ONE (13:05)
[2018-02-06] MEDS ORDERED: PROPOFOL 200 MG/20 ML VIAL IV ONE ×2 (13:05→13:06)
[2018-02-06] MEDS ORDERED: fentaNYL 100 MCG/2 ML VIAL ONE (13:05)
[2018-02-06] MEDS ORDERED: MIDAZOLAM 2 MG/2 ML VIAL ONE (13:06)
[2018-02-06] MEDS ORDERED: ONDANSETRON 4 MG/2 ML VIAL IV PRN (13:10)
[2018-02-06] MEDS ORDERED: HYDROmorphone 2 MG/1 ML VIAL IV PRN (13:10)
[2018-02-06] MEDS: ACETAMINOPHEN 325 MG TABLET PO PRN (23:35)
[2018-02-07] MEDS: DOCOSANOL 10% CREAM 2 GM TUBE TOP SCH ×3 (00:23→10:43)
[2018-02-07] MEDS: MORPHINE 4 MG/1 ML VIAL IV PRN (04:19)
[2018-02-07] MEDS: ONDANSETRON 4 MG/2 ML VIAL IV PRN (05:54)
[2018-02-07 06:50] LABS: Basophils # 0.1 10*3/uL (0.0-0.2); Basophils % 0.5 % (0.0-0.8); Eosinophils # 0.2 10*3/uL (0.0-0.87); Eosinophils % 1.6 % (0.00-10.9); Hematocrit 31.1 VOL% (35.7-47.0); Hemoglobin 9.7 GM/DL (12.0-16.0); Immature Granulocytes % 1.7 %; Immature Granulocytes Absolute 0.24 #; Lymphocytes # 2.8 10*3/uL (1.4-4.0); Lymphocytes % 20.3 % (21.3-54.2); Mean Corpuscular HGB Conc 31.2 GM/DL (32-36); Mean Corpuscular Hemoglobin 26 PG (27-34); Mean Corpuscular Volume 84.1 FL (87-102); Mean Platelet Volume 8.7 FL (9.6-12.0); Monocytes # 1.1 10*3/uL (0.11-0.8); Monocytes % 7.6 % (1.7-12.7); Neutrophils # 9.5 10*3/uL (1.4-7.4); Neutrophils % 68.3 % (38.7-73.9); Platelet Count 805 T/CUMM (130-400); Red Cell Distribution Width 14.3 % (9.3-17.3); White Blood Count 13.8 T/CUMM (4-12)
[2018-02-07] MEDS: LACTATED RINGERS 1,000 ML IV SCH (07:59)
[2018-02-07] MEDS: DIVALPROEX 250 MG TABLET PO SCH (08:50)
[2018-02-07] MEDS: CLARITHROMYCIN 500 MG TABLET PO SCH (08:50)
[2018-02-07] MEDS: MYLANTA/LIDO VISC/DIPH 300 ML BOTTLE SWISH/SPIT SCH (08:50)
[2018-02-07] MEDS: POLYETHYLENE GLYCOL POWDER 17 GM PACK PO SCH (08:51)
[2018-02-07] MEDS: AMOXICILLIN 500 MG CAPSULE PO SCH (08:51)
[2018-02-07] MEDS: PANTOPRAZOLE 40 MG TABLET PO SCH (08:51)
[2018-02-07 10:24] VITALS: BP 133/94
[2018-02-07] MEDS: ACETAMINOPHEN 325 MG TABLET PO PRN (10:35)
== END 2018-02-07 11:13 | disposition home or self-care (01) | DRG 327 ==
LOC: N.ED 13:10 → N.EDINP 17:30 → N.5E 19:59
PROVIDERS: ADMIT Surgery; ATTEND Surgery